=== PATIENT | female | born 1980 | race African-American/Black ===

== ENCOUNTER 2017-12-16 13:34 | Emergency (ER) | payer OTHER ==
[~2017-12-16] VITALS: Ht 162.6 cm; Wt 122.7 kg
[2017-12-16 13:39] VITALS: Ht 162.6 cm; Wt 122.7 kg
[2017-12-16] MEDS ORDERED: MOBIC7.5 MG (13:44)
[2017-12-16 15:17] LABS: APPEARANCE HAZY (CLEAR); BILIRUBIN NEGATIVE (NEGATIVE); COLOR YELLOW (YELLOW); GLUCOSE NEGATIVE (NEGATIVE); KETONE NEGATIVE (NEGATIVE); NITRITE NEGATIVE (NEGATIVE); PROTEIN NEGATIVE (NEGATIVE); SPECIFIC GRAVITY 1.015 (1.005-1.020); UROBILINOGEN NORMAL (NORMAL)
[2017-12-16 15:38] LABS: EPITHELIAL CELLS 0-5 /hpf (0-5); RED CELLS - URINE 0-5 /hpf (0-5); WHITE CELLS - URINE 0-5 /hpf (0-5)
[2017-12-16 15:39] LABS: BACTERIA FEW /hpf (NONE SEEN); HYALINE CAST RARE /lpf (NONE SEEN); TALC POWDER CRYSTALS 0-5 /hpf (NONE SEEN)
[2017-12-16] MEDS ORDERED: TORADOL10 MG PO (17:41)
[2017-12-16] MEDS ORDERED: NEURONTIN 300300 MG PO (17:41)
[2017-12-16 18:05] VITALS: BP 130/87
== END 2017-12-16 18:05 | disposition home or self-care (01) ==
LOC: D.ER 13:34
PROVIDERS: Family Medicine
DX: M54.16 Radiculopathy, lumbar region (principal); F17.200 Nicotine dependence, unspecified, uncomplicated